=== PATIENT | male | born 1990 | race Caucasian/White ===

== ENCOUNTER 2018-01-01 00:49 | Emergency (ER) | payer SELFPAY ==
[~2018-01-01 00:49] MED LIST: DOXY-179 PO; LOR5 PO
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
[2018-01-01] MEDS ORDERED: NS(*) 0.9% 1000 ML BAG 1,000 ML IV ONE (01:15)
[2018-01-01] MEDS ORDERED: MORPHINE 4 MG/ML SDV IVP ONE (01:35)
[2018-01-01] MEDS ORDERED: DIPHTH/TETANUS/ACEL. PERTUSSIS IM ONLY ONE (01:35)
[2018-01-01] MEDS ORDERED: KETOROLAC 15 MG/ML VIAL IVP ONE (01:35)
[2018-01-01] MEDS ORDERED: ONDANSETRON 4 MG/2 ML VIAL IVP ONE (01:35)
[2018-01-01] MEDS ORDERED: MORPHINE 4 MG/ML SDV ONE (01:59)
[2018-01-01] MEDS ORDERED: oxyCODONE/ACETAMIN 5/325MG TH 2 TAB/BOTTLE PO ONE (02:10)
[2018-01-01] MEDS ORDERED: KETOROLAC TROM 10 MG TAB TH PO ONE (02:10)
[2018-01-01] MEDS ORDERED: KET10 PO (02:15)
[2018-01-01] MEDS ORDERED: OXYC-865 PO ×2 (02:15→02:20)
[2018-01-01 02:16] VITALS: BP 122/91
== END 2018-01-01 02:34 | disposition home or self-care (01) ==
LOC: CANBEDREQ 01:04 → ER 01:29
DX: T25.092A Burn of unspecified degree of multiple sites of left ankle and foot, initial encounter (principal); T25.091A Burn of unspecified degree of multiple sites of right ankle and foot, initial encounter
CPT/HCPCS: 16025; 90471; 90715; 96361; 96374; 96375; 99284; J1885; J2270; J2405; J7030